=== PATIENT | female | born 1995 | race Caucasian/White ===

== ENCOUNTER 2021-04-27 11:32 | Observation (INO) ==
[2021-04-27] MEDS ORDERED: SODIUM CHLORIDE 0.9% 1,000 ML IV STA (11:55)
[2021-04-27] MEDS ORDERED: PIPERACILLIN/TAZOBACTAM 3,375 MG in SODIUM CHLORIDE 0.9% 100 ML IV STA (11:57)
[2021-04-27] MEDS ORDERED: HYDROmorphone 2 MG/1 ML VIAL IV STA (13:41)
[2021-04-27] MEDS ORDERED: ONDANSETRON 4 MG/2 ML VIAL IV STA (13:41)
[2021-04-27 14:38] LABS: Basophils % 0.7 % (0.0-0.8); Eosinophils # 0.2 10*3/uL (0.0-0.87); Hematocrit 43.7 VOL% (35.7-47.0); Hemoglobin 14.8 GM/DL (12.0-16.0); Immature Granulocytes % 0.3 %; Immature Granulocytes Absolute 0.02 #; Lymphocytes # 1.8 10*3/uL (1.4-4.0); Lymphocytes % 29.6 % (21.3-54.2); Mean Corpuscular HGB Conc 33.9 GM/DL (32-36); Mean Corpuscular Volume 89.9 FL (87-102); Mean Platelet Volume 10.8 FL (9.6-12.0); Monocytes % 10.8 % (1.7-12.7); Neutrophils % 55.6 % (38.7-73.9); Platelet Count 182 T/CUMM (130-400); Red Blood Count 4.86 MC/CUMM (3.8-5.5); Red Cell Distribution Width 13.2 % (9.3-17.3); White Blood Count 5.9 T/CUMM (4-12)
[2021-04-27] MEDS ORDERED: GLUCAGON 1 MG VIAL IM PRN (14:38)
[2021-04-27] MEDS ORDERED: DEXTROSE 50% 25 GM/50 ML VIAL IV PRN (14:38)
[2021-04-27 14:48] LABS: INR 1.4; PT Patient Result 15.8 SECS (10.5-12.0)
[2021-04-27 15:09] LABS: Bilirubin,Total 4.8 MG/DL (0.2-1.0); Calcium 7.4 MG/DL (8.5-10.1); Osmolality,Calculated 266.1 MOS/KG (273-304); Potassium 3.6 MMOL/L (3.5-5.1); Total Protein 6.5 G/DL (6.4-8.2)
[2021-04-27 15:40] LABS: Hepatitis B Core IgM Quant 0.05 Index; Hepatitis B Surface Ag Quant < 0.10 Index; Hepatitis B Surface Ag Result Non-Reactive (NonReactive); Hepatitis C Virus Ab Quant 0.03 Index; Hepatitis C Virus Ab Result Non-Reactive (NonReactive)
[2021-04-27] MEDS: PANTOPRAZOLE 40 MG VIAL IV SCH (17:35)
[2021-04-27] MEDS: DEXTROSE 5% NACL 0.45% 1,000 ML IV SCH (17:35)
[2021-04-27] MEDS: ENOXAPARIN 40 MG/0.4 ML SYRINGE SUBCUT SCH (17:36)
[2021-04-28] MEDS: DEXTROSE 5% NACL 0.45% 1,000 ML IV SCH ×2 (03:37→16:27)
[2021-04-28 05:59] LABS: Basophils # 0.1 10*3/uL (0.0-0.2); Basophils % 1.4 % (0.0-0.8); Eosinophils # 0.1 10*3/uL (0.0-0.87); Eosinophils % 2.8 % (0.00-10.9); Hematocrit 42.2 VOL% (35.7-47.0); Hemoglobin 14.3 GM/DL (12.0-16.0); Immature Granulocytes % 0.5 %; Immature Granulocytes Absolute 0.02 #; Lymphocytes # 1.8 10*3/uL (1.4-4.0); Lymphocytes % 42.7 % (21.3-54.2); Mean Corpuscular HGB Conc 33.9 GM/DL (32-36); Mean Corpuscular Volume 88.5 FL (87-102); Monocytes % 11.1 % (1.7-12.7); Neutrophils % 41.5 % (38.7-73.9); Platelet Count 167 T/CUMM (130-400); Red Blood Count 4.77 MC/CUMM (3.8-5.5); Red Cell Distribution Width 13.2 % (9.3-17.3); White Blood Count 4.3 T/CUMM (4-12)
[2021-04-28 06:31] LABS: Hypochromasia Slight
[2021-04-28 06:32] LABS: Microcytosis Slight; Platelet Estimate Adequate
[2021-04-28 06:42] LABS: Albumin 2.6 G/DL (3.4-5.0); Bilirubin,Total 4.8 MG/DL (0.2-1.0); Calcium 7.5 MG/DL (8.5-10.1); Osmolality,Calculated 260.5 MOS/KG (273-304); Potassium 3.4 MMOL/L (3.5-5.1); Total Protein 6.3 G/DL (6.4-8.2)
[2021-04-28 07:19] LABS: INR 2.2
[2021-04-28] MEDS: PANTOPRAZOLE 40 MG VIAL IV SCH (08:20)
[2021-04-28] MEDS ORDERED: POTASSIUM CHLORIDE 20 MEQ TABLET PO ONE (09:29)
[2021-04-28] MEDS ORDERED: PHYTONADIONE 5 MG/5 ML ORAL.SYR PO ONE (09:29)
[2021-04-28] MEDS ORDERED: ACETAMINOPHEN 325 MG TABLET PO PRN (10:15)
[2021-04-28] MEDS ORDERED: IBUPROFEN 400 MG TABLET PO PRN (10:16)
[2021-04-28] MEDS: THIAMINE 100 MG TABLET PO SCH (10:27)
[2021-04-28] MEDS: MULTIVITAMIN (BEROCCA) TABLET PO SCH (10:28)
[2021-04-28] MEDS: ENOXAPARIN 40 MG/0.4 ML SYRINGE SUBCUT SCH (16:27)
[2021-04-28] MEDS: chlordiazePOXIDE 10 MG CAPSULE PO SCH ×2 (16:28→21:50)
[2021-04-28] MEDS: FOLIC ACID 1 MG TABLET PO SCH (21:50)
[2021-04-29] MEDS ORDERED: PROMETHAZINE 25 MG/1 ML VIAL IM ONE (03:05)
[2021-04-29] MEDS: ONDANSETRON 4 MG/2 ML VIAL IV PRN ×2 (03:23→14:27)
[2021-04-29] MEDS: DEXTROSE 5% NACL 0.45% 1,000 ML IV SCH ×2 (04:31→17:10)
[2021-04-29 05:27] LABS: Basophils # 0.1 10*3/uL (0.0-0.2); Basophils % 1.7 % (0.0-0.8); Eosinophils # 0.4 10*3/uL (0.0-0.87); Eosinophils % 8.4 % (0.00-10.9); Hematocrit 43.6 VOL% (35.7-47.0); Hemoglobin 15.1 GM/DL (12.0-16.0); Immature Granulocytes % 0.4 %; Immature Granulocytes Absolute 0.02 #; Lymphocytes # 2.1 10*3/uL (1.4-4.0); Lymphocytes % 45.4 % (21.3-54.2); Mean Corpuscular HGB Conc 34.6 GM/DL (32-36); Mean Corpuscular Volume 88.8 FL (87-102); Neutrophils % 33.1 % (38.7-73.9); Platelet Count 164 T/CUMM (130-400); Red Blood Count 4.91 MC/CUMM (3.8-5.5); Red Cell Distribution Width 13.5 % (9.3-17.3); White Blood Count 4.6 T/CUMM (4-12)
[2021-04-29 05:37] LABS: INR 1.9; PT Patient Result 20.3 SECS (10.5-12.0)
[2021-04-29 06:05] LABS: Atypical Lymphocytes Few; Band Neutrophils 2 % (0-10); Eosinophils 9 % (0-10); Lymphocytes 46 % (20-55); Segmented Neutrophils 31 % (50-85); Total Cells Counted 100
[2021-04-29 06:06] LABS: Hypochromasia Slight; Microcytosis Slight; Platelet Estimate Adequate
[2021-04-29 06:10] LABS: Albumin 2.7 G/DL (3.4-5.0); Bilirubin,Total 5.6 MG/DL (0.2-1.0); Calcium 7.8 MG/DL (8.5-10.1); Osmolality,Calculated 269.8 MOS/KG (273-304); Potassium 3.9 MMOL/L (3.5-5.1); Total Protein 6.3 G/DL (6.4-8.2)
[2021-04-29] MEDS: PANTOPRAZOLE 40 MG VIAL IV SCH (08:30)
[2021-04-29] MEDS: MULTIVITAMIN (BEROCCA) TABLET PO SCH (08:30)
[2021-04-29] MEDS: THIAMINE 100 MG TABLET PO SCH (08:30)
[2021-04-29] MEDS: chlordiazePOXIDE 10 MG CAPSULE PO SCH ×2 (08:30→15:52)
[2021-04-29] MEDS ORDERED: PHYTONADIONE 5 MG/5 ML ORAL.SYR PO ONE (08:51)
[2021-04-29] MEDS: ENOXAPARIN 40 MG/0.4 ML SYRINGE SUBCUT SCH (14:28)
[2021-04-29] MEDS ORDERED: GLYCERIN ADULT SUPP RECTAL ONE (16:05)
[2021-04-29] MEDS ORDERED: SODIUM PHOSPHATE ENEMA 133 ML BOTTLE RECTAL PRN (16:06)
[2021-04-29] MEDS ORDERED: GLYCERIN ADULT SUPP RECTAL PRN (17:17)
[2021-04-29] MEDS: FOLIC ACID 1 MG TABLET PO SCH (20:34)
[2021-04-29] MEDS: DOCUSATE SODIUM 100 MG CAPSULE PO SCH (20:34)
[2021-04-29] MEDS: POLYETHYLENE GLYCOL POWDER 17 GM PACK PO SCH (20:37)
[2021-04-30 05:39] LABS: Basophils # 0.1 10*3/uL (0.0-0.2); Basophils % 1.2 % (0.0-0.8); Eosinophils # 0.5 10*3/uL (0.0-0.87); Eosinophils % 6.3 % (0.00-10.9); Hematocrit 43.9 VOL% (35.7-47.0); Hemoglobin 14.9 GM/DL (12.0-16.0); Immature Granulocytes % 0.5 %; Immature Granulocytes Absolute 0.04 #; Lymphocytes # 3.5 10*3/uL (1.4-4.0); Lymphocytes % 47.3 % (21.3-54.2); Mean Corpuscular HGB Conc 33.9 GM/DL (32-36); Mean Corpuscular Volume 89.2 FL (87-102); Mean Platelet Volume 12.3 FL (9.6-12.0); Monocytes % 9.2 % (1.7-12.7); Neutrophils % 35.5 % (38.7-73.9); Red Blood Count 4.92 MC/CUMM (3.8-5.5); Red Cell Distribution Width 13.8 % (9.3-17.3)
[2021-04-30 05:40] LABS: Platelet Count 214 T/CUMM (130-400); White Blood Count 7.5 T/CUMM (4-12)
[2021-04-30 05:48] LABS: INR 1.8; PT Patient Result 19.5 SECS (10.5-12.0)
[2021-04-30 05:51] LABS: Atypical Lymphocytes Few; Eosinophils 5 % (0-10); Lymphocytes 52 % (20-55); Platelet Estimate Adequate; Segmented Neutrophils 34 % (50-85); Total Cells Counted 100
[2021-04-30 05:52] LABS: Hypochromasia Slight; Microcytosis Slight
[2021-04-30] MEDS: DEXTROSE 5% NACL 0.45% 1,000 ML IV SCH (06:09)
[2021-04-30] MEDS: MULTIVITAMIN (BEROCCA) TABLET PO SCH (08:34)
[2021-04-30] MEDS: POLYETHYLENE GLYCOL POWDER 17 GM PACK PO SCH (08:35)
[2021-04-30] MEDS: DOCUSATE SODIUM 100 MG CAPSULE PO SCH (08:35)
[2021-04-30] MEDS: PANTOPRAZOLE 40 MG VIAL IV SCH (08:35)
[2021-04-30] MEDS: THIAMINE 100 MG TABLET PO SCH (08:35)
[2021-04-30 09:34] LABS: Albumin 2.5 G/DL (3.4-5.0); Calcium 7.8 MG/DL (8.5-10.1); Osmolality,Calculated 265.1 MOS/KG (273-304); Potassium 3.6 MMOL/L (3.5-5.1); Total Protein 6.2 G/DL (6.4-8.2)
[2021-04-30 09:36] VITALS: BP 108/70
== END 2021-04-30 10:58 | disposition home or self-care (01) ==
LOC: EDUNIT# → EDBD → N.EDINP 11:32 → N.ED 11:32 → SUATTDRO 14:06 → N.5E 15:24
PROVIDERS: ADMIT Hospitalist; ATTEND Internal Medicine